=== PATIENT | male | born 1960 | race Caucasian/White ===

== ENCOUNTER 2019-03-13 13:51 | Emergency (ER) | payer BC ==
[2019-03-13 14:49] VITALS: BP 108/80
--- NOTE | 2019-03-13 15:06 | UC ---
Throat Pain/Nasal Sae HPI - HPI Summary HPI Summary: 58-year-old male who is been sick for approximately 1-1/2 weeks with a congested cough and head congestion. He is a smoker. He has not gotten a flu shot yet this year. - History of Current Complaint Chief Complaint: UCRespiratory Stated Complaint: FEVER COUGH Time Seen by Provider: 03/13/19 14:46 Hx Obtained From: Patient Onset/Duration: Gradual Onset Severity: Mild Pain Intensity: 3 Cough: Productive - Productive cough of yellow sputum. Associated Signs & Symptoms: Positive: Wheezing - Allergies/Home Medications Allergies/Adverse Reactions: Allergies Allergy/AdvReac Type Severity Reaction Status Date / Time No Known Allergies Allergy Verified 03/13/19 14:46 PMH/Surg Hx/FS Hx/Imm Hx Previously Healthy: Yes - Surgical History Surgical History: None - Family History Known Family History: Positive: None - Social History Lives: With Family Alcohol Use: Occasionally Substance Use Type: None Smoking Status (MU): Heavy Every Day Tobacco Smoker Type: Cigarettes Amount Used/How Often: 1 PPD Length of Time of Smoking/Using Tobacco: greater than 30 years Have You Smoked in the Last Year: Yes - Immunization History Most Recent Tetanus Shot: unknown Review of Systems All Other Systems Reviewed And Are Negative: Yes Constitutional: Positive: Fever - Patient thinks he's had fever and chills., Chills ENT: Positive: Nasal Discharge, Sinus Congestion Respiratory: Positive: Cough - Moist cough with wheezing. Is Patient Immunocompromised?: No Physical Exam Triage Information Reviewed: Yes Appearance: Well-Appearing, No Pain Distress, Well-Nourished Vital Signs: Initial Vital Signs Temp 98.8 F 03/13/19 14:46 Pulse 90 03/13/19 14:46 Resp 18 03/13/19 14:46 BP 108/80 03/13/19 14:46 Pulse Ox 95 03/13/19 14:46 Vital Signs Reviewed: Yes Eyes: Positive: Conjunctiva Clear ENT: Positive: Pharynx normal, Nasal congestion, Nasal drainage - Clear nasal coryza, TMs normal, Uvula midline Neck: Positive: Supple, Nontender, No Lymphadenopathy Respiratory: Positive: No respiratory distress, No accessory muscle use, Rhonchi , Wheezing - Scattered rhonchi and wheezing throughout no distress. Cardiovascular: Positive: RRR, No Murmur, Pulses Normal, Brisk Capillary Refill Musculoskeletal Exam: Normal Neurological Exam: Normal Psychological Exam: Normal Skin Exam: Normal Throat Pain/Nasal Course/Dx - Course Course Of Treatment: Chest x-ray:REPORT: Small RIGHT pleural effusion and mild alveolar consolidation and atelectasis at the RIGHT middle lobe. Clear LEFT lung and pleural space. Overall the lung volumes appear elevated. Patchy rarefaction of upper lung zone interstitial markings. Negative for pneumothorax. The heart, pulmonary vasculature, and mediastinal contours are unremarkable. IMPRESSION: # . The constellation of findings favors RIGHT middle lobe pneumonia with associated small pleural effusion. Radiographic follow-up after therapy warranted to assess for resolution. DuoNeb treatment: Patient feels like he is moving more air with less wheezing after the treatment. His lungs have scattered rhonchi but less wheezing. I am going to treat him with doxycycline as well as prednisone. I gave him physician referral information to establish care with a local physician. He is to go the emergency room if he has any worsening symptoms. - Differential Dx/Diagnosis Provider Diagnosis: Pneumonia, Bronchitis Discharge ED - Sign-Out/Discharge Documenting (check all that apply): Patient Departure All imaging exams completed and their final reports reviewed: Yes - Discharge Plan Condition: Fair Disposition: HOME Prescriptions: DOXYcycline CAP(*) [DOXYcycline 100MG CAP(*)] 100 mg PO BID 10 Days #20 cap predniSONE TAB* [Deltasone 10 MG TAB*] 10 mg PO DAILY 12 Days #30 tab Patient Education Materials: Acute Bronchitis (ED), Pneumonia (ED) Referrals: [facility] REFERRAL [Outside] No Primary Care Phys,NOPCP [Primary Care Provider] - Additional Instructions: Increase fluids, no dairy products, antacids or multivitamins 2 hours before you take the doxycycline and 2 hours after you take doxycycline however you definitely want to take it with food. Call the physician referral Center to establish care with a local physician for follow-up before the antibiotic is finished. If you have any worsening symptoms shortness of breath chest pain your to go to the emergency room. - Billing Disposition and Condition Condition: FAIR Disposition: Home
[2019-03-13] MEDS ORDERED: Albuterol/Ipratropium NEB.SOL* Albuterol 2.5 MG/Ipratropium 0.5 MG 3 ML INH ONE (15:10)
== END 2019-03-13 15:58 | disposition home or self-care (01) ==
LOC: UCCORT 13:51
DX: J18.9 Pneumonia, unspecified organism (principal); J40 Bronchitis, not specified as acute or chronic; F17.210 Nicotine dependence, cigarettes, uncomplicated
CPT/HCPCS: 71046; 99202; A9270-GY; G0463